=== PATIENT | male | born 2000 | race African-American/Black ===

== ENCOUNTER 2022-05-26 09:34 | Observation (INO) | payer OTHER ==
[2022-05-26 12:49] LABS: #Basophils 0.1 thou/uL (0.0-0.2); #Eosinphils 0.2 thou/uL (0.0-0.7); #Monocytes 0.7 thou/uL (0.11-0.59); #Neutrophils 5.4 thou/uL (1.40-6.50); %Basophils 0.8 % (0.0-1.0); %Eosinophils 2.1 % (0.0-10.0); %Monocytes 7.8 % (0.0-10.0); %Neutrophils 57.3 % (42.0-75.0); Hemoglobin 16.2 g/dL (14.0-18.0); Mean Corpuscular HGB CONC 32.4 g/dL (32.0-36.0); Mean Corpuscular Hemoglobin 31.1 pg (27.0-31.0); Mean Corpuscular Volume 96.1 fL (78.0-98.0); Platelet Count 246 thou/uL (130-400); RBC Distribution Width 11.9 % (11.5-14.5); Red Blood Cell (RBC) Count 5.21 mill/uL (4.70-6.10); White Blood Cell (WBC) Count 9.5 thou/uL (4.8-10.8)
[2022-05-26 14:06] LABS: ALT (SGPT) 17 U/L (8-55); AST (SGOT) 19 U/L (5-34); Albumin 4.6 g/dL (3.5-5.0); Alkaline Phosphatase 74 U/L (40-110); Anion Gap 16 mmol/L (10-20); BUN (Urea Nitrogen) 12 mg/dL (8.9-20.6); Bilirubin, Total 0.6 mg/dL (0.2-1.2); Calc. Creatinine Clearance 0 mL/min (70-130); Calcium 9.8 mg/dL (7.8-10.44); Carbon Dioxide 25 mmol/L (22-29); Chloride 105 mmol/L (98-107); Estimated GFR 104; Globulin 3.6 g/dL (2.4-3.5); Glucose 85 mg/dL (70-105); Potassium 3.7 mmol/L (3.5-5.1); Protein, Total 8.2 g/dL (6.0-8.3); Sodium 142 mmol/L (136-145)
[2022-05-26] MEDS ORDERED: Acetaminophen 325 MG TAB PO PRN (15:27)
[2022-05-26] MEDS ORDERED: Ondansetron ODT 4 MG TAB PO PRN (15:35)
[2022-05-26] MEDS ORDERED: Lorazepam 2 MG/ML VIAL IM PRN (15:35)
[2022-05-26] MEDS ORDERED: Lorazepam 1 MG TAB PO PRN (15:35)
[2022-05-26] MEDS ORDERED: Electrolyte Replacement Protocol 1 EACH FS SCH (15:45)
[2022-05-26] MEDS ORDERED: Thiamine HCl 200 MG/2 ML VIAL SLOW IVP SCH (15:45)
[2022-05-26 16:00] LABS: Troponin I Less than 0.010 ng/mL (< 0.028)
[2022-05-26 17:04] LABS: #Eosinphils 0.2 thou/uL (0.0-0.7); #Lymphocytes 2.5 thou/uL (1.20-3.40); #Monocytes 0.4 thou/uL (0.11-0.59); #Neutrophils 5.3 thou/uL (1.40-6.50); %Basophils 0.4 % (0.0-1.0); %Eosinophils 2.1 % (0.0-10.0); %Lymphocytes 30.1 % (21.0-51.0); %Monocytes 5.1 % (0.0-10.0); %Neutrophils 62.4 % (42.0-75.0); Hemoglobin 15.9 g/dL (14.0-18.0); Mean Corpuscular HGB CONC 32.9 g/dL (32.0-36.0); Mean Corpuscular Hemoglobin 31.3 pg (27.0-31.0); Mean Corpuscular Volume 95.1 fL (78.0-98.0); Mean Platelet Volume 8.4 fL (7.4-10.4); Platelet Count 235 thou/uL (130-400); RBC Distribution Width 11.8 % (11.5-14.5); Red Blood Cell (RBC) Count 5.07 mill/uL (4.70-6.10); White Blood Cell (WBC) Count 8.4 thou/uL (4.8-10.8)
[2022-05-26 17:25] LABS: ALT (SGPT) 18 U/L (8-55); AST (SGOT) 20 U/L (5-34); Albumin 4.6 g/dL (3.5-5.0); Alkaline Phosphatase 74 U/L (40-110); Anion Gap 15 mmol/L (10-20); BUN (Urea Nitrogen) 12 mg/dL (8.9-20.6); Bilirubin, Direct 0.1 mg/dL (0.1-0.3); Bilirubin, Total 0.4 mg/dL (0.2-1.2); Calc. Creatinine Clearance 0 mL/min (70-130); Calcium 10.4 mg/dL (7.8-10.44); Carbon Dioxide 27 mmol/L (22-29); Chloride 102 mmol/L (98-107); Estimated GFR 107; Globulin 3.7 g/dL (2.4-3.5); Glucose 114 mg/dL (70-105); Magnesium 2.2 mg/dL (1.6-2.6); Phosphorus 3.9 mg/dL (2.3-4.7); Potassium 3.8 mmol/L (3.5-5.1); Protein, Total 8.3 g/dL (6.0-8.3); Sodium 140 mmol/L (136-145)
[2022-05-26 17:30] LABS: Troponin I Less than 0.010 ng/mL (< 0.028)
[2022-05-26 17:46] LABS: HBCM Index 0.09 S/CO (0-0.79); HBSAg Index 0.32 S/CO (0-0.99); Hep A IgM AB Non-Reactive (NonReactive); Hep A IgM S/CO 0.21 S/CO (0-0.79); Hep B Surf Ag Non-Reactive S/CO (NonReactive); Hep C IgG Ab Non-Reactive (NonReactive); Hep C Index 0.07 S/CO (0-0.79); Hepatitis B Core IgM Abs Non-Reactive (NonReactive)
[2022-05-26 18:26] VITALS: BMI 26.1
[2022-05-26 18:37] LABS: Syphilis Antibody Nonreactive (Nonreactive); Syphilis Antibody Index 0.04 S/CO (<1.00 Non-Reactive)
[2022-05-26] MEDS: Lorazepam 1 MG TAB PO SCH ×2 (19:17→21:35)
[2022-05-26 19:57] LABS: Amphetamine Not Detected (NotDetected); Barbiturates Screen Not Detected (NotDetected); Benzodiazepine Screen Not Detected (NotDetected); Cocaine Metabolite Screen Not Detected (NotDetected); Methadone Not Detected (NotDetected); Methamphetamine Not Detected (NotDetected); Opiate Screen Not Detected (NotDetected); Oxycodone Screen Not Detected (NotDetected); Phencyclidine (PCP) Not Detected (NotDetected); THC/Cannabinoid Screen Not Detected (NotDetected); Tricyclic Screen Not Detected (NotDetected)
[2022-05-27] MEDS: Lorazepam 1 MG TAB PO SCH ×2 (04:38→08:48)
[2022-05-27 07:39] VITALS: BP 136/71; TEMP 97.7
[2022-05-27] MEDS ORDERED: Folic Acid 1 MG TAB PO SCH (09:00)
[2022-05-27] MEDS ORDERED: Multivit, Therapeutic 1 TAB PO SCH (09:00)
[2022-05-27] MEDS ORDERED: Prevnar 13-Val Conj/PF 0.5 ML SYRINGE IM ONE (09:00)
[2022-05-27] MEDS ORDERED: Lorazepam 1 MG TAB PO PRN (15:42)
[2022-05-28] MEDS ORDERED: Lorazepam 1 MG TAB PO PRN (15:42)
[2022-05-28] MEDS ORDERED: Lorazepam 0.5 MG TAB PO SCH (15:45)
[2022-05-29] MEDS ORDERED: Thiamine 100 MG TAB PO SCH (09:00)
[2022-05-29] MEDS ORDERED: Lorazepam 0.5 MG TAB PO PRN (15:42)
[2022-05-29 16:37] LABS: %CD4 (Helper/Inducer) 31.5 % (30.8-58.5); Absolute CD4 756 /uL (359-1519); Lymphocytes/Gated Cell Count 2.4 x10E3/uL (0.7-3.1); Total Lymphocyte 30 % (Not Estab.); WBC Total Count 8.1 x10E3/uL (3.4-10.8)
[2022-05-31 01:37] LABS: QuantiFERON-TB Gold Plus Negative (Negative)
== END 2022-05-27 11:40 | disposition home or self-care (01) ==
LOC: ERS 09:34 → ERHOLD 14:08 → 2SW 17:57
PROVIDERS: ADMIT Student in an Organized Health Care Education/Training Program; ATTEND Student in an Organized Health Care Education/Training Program
DX: R07.89 Other chest pain (principal); R94.31 Abnormal electrocardiogram [ECG] [EKG]; F10.10 Alcohol abuse, uncomplicated; F17.210 Nicotine dependence, cigarettes, uncomplicated; Z21 Asymptomatic human immunodeficiency virus [HIV] infection status; Z79.899 Other long term (current) drug therapy; Z20.822 Contact with and (suspected) exposure to COVID-19
CPT/HCPCS: 36415; 36416; 71045; 80053; 80074; 80306; 82248; 82550; 83735; 83880; 84100; 84484; 85025; 85652; 86140; 86361; 86480; 86780; 93005; 93010; 96374; G0378; J3411; U0003; U0005